=== PATIENT | male | born 2000 | race Caucasian/White ===

== ENCOUNTER 2018-11-21 22:14 | Emergency (ER) | payer OTHER ==
[~2018-11-21] VITALS: Ht 182.9 cm; Wt 108.9 kg
[2018-11-21] MEDS ORDERED: CYMBALTA60 MG PO (22:33)
[2018-11-21] MEDS ORDERED: WELLBUTRIN SR150 MG PO (22:34)
[2018-11-21] MEDS ORDERED: ZYRTEC10 M5 PO (22:34)
[2018-11-21] MEDS ORDERED: VITAMIN D31 ML PO (22:35)
[2018-11-21 23:05] LABS: BASOPHILS 0.8 % (0.0-2.0); EOSINOPHILS 4.2 % (0.0-3.0); HEMATOCRIT 45.1 % (42.0-52.0); HEMOGLOBIN 15.9 gm/dL (14.0-18.0); LYMPHOCYTES 37.3 % (24.0-44.0); MCH 29.1 pg (26.0-34.0); MCHC 35.2 g/dL (28.0-37.0); MCV 82.9 fL (80.0-100.0); MONOCYTES 5.7 % (1.0-8.0); PLATELET COUNT 84 thou/uL (150-400); RBC 5.44 mil/uL (4.50-6.00); WBC 9.6 thou/uL (4.0-11.0)
[2018-11-21 23:07] LABS: ANION GAP 5 mmol/L (7-16); BUN 11 mg/dL (7-18); CALCIUM 9.8 mg/dL (8.5-10.1); CHLORIDE 97 mmol/L (98-107); CO2 24 mmol/L (21-32); CREATININE 0.7 mg/dL (0.7-1.3); GLUCOSE 107 mg/dL (74-106); POTASSIUM 3.4 mmol/L (3.5-5.1); SODIUM 126 mmol/L (136-145)
[2018-11-21 23:16] LABS: TROPONIN-I <0.06 ng/mL (<0.06)
[2018-11-21 23:43] LABS: CALCIUM 9.4 mg/dL (8.5-10.1); CREATININE 0.8 mg/dL (0.7-1.3)
[2018-11-22 01:04] VITALS: BP 138/77
--- NOTE | 2018-11-23 13:29 | EKG ---
[place] [address] [address] [facility] [employer] [place] [address] ELECTROCARDIOGRAM REPORT Name: TOÑO HU Room #: DEP MALENA Jacobson#: [id number] ������������������ Admission: 11/21/18 ������������������ Attend Phys: Discharge: 11/22/18 ������������������ Date of : [birth year] Report #: [id number] ����������������������������������������������������������������� [id number] THIS REPORT FOR: //name// [facility] ED Test Date: 2018-11-21 Test Time: 22:21:24 Pat Name: TOÑO HU Department: Room: Gender: M Supervisor [employer]: [id number] : 2000 Requested By: Marina Quintero Order Number: [id number] MD: Albert Clark Measurements Intervals [place] Rate: 66 P: 30 RI: 133 QRS: 48 QRSD: 94 T: 33 QT: 400 QTc: 420 Interpretive Statements Sinus rhythm Normal tracing No previous ECG available for comparison Electronically Signed On 11-23-2018 13:29:08 CDT by Albert Clark [email or web address] ��������������������������������������������� <ELECTRONICALLY SIGNED> ���������������������������������������� By: Albert Clark MD, [facility] ��������������������������������������������� 11/23/18 1329 2221 2221 Albert Clark MD, FACC /EPI
== END 2018-11-22 02:13 | disposition home or self-care (01) ==
LOC: ER 22:14
PROVIDERS: Student in an Organized Health Care Education/Training Program
DX: E87.6 Hypokalemia (principal); J45.909 Unspecified asthma, uncomplicated; F32.9 Major depressive disorder, single episode, unspecified; Z91.048 Other nonmedicinal substance allergy status